=== PATIENT | male | born 1970 | race Caucasian/White ===

== ENCOUNTER 2016-07-18 22:26 | Emergency (ER) | payer OTHER ==
[2016-07-18 22:33] VITALS: BP 128/74; PULSE 95; TEMP 97.9; BMI 32.5
[2016-07-18] MEDS ORDERED: TETRACAINE 0.5% OPHTH SOLN 2 ML BOTTLE ONE (23:10)
[2016-07-18] MEDS ORDERED: FLUORESCEIN NA 1 EA STRIP ONE (23:10)
[2016-07-18] MEDS ORDERED: OFLOXACIN 0.3% OPHTHALMIC SOLUTION 5 ML BOTTLE OD ONE (23:20)
[2016-07-18] MEDS ORDERED: TETANUS AND DIPHTHERIA TOXOID 0.5 ML DISP.SYRIN IM ONE (23:20)
--- NOTE | 2016-07-18 23:28 | PDOC ---
History of Present Illness - General Chief Complaint: Foreign Body (FB) Stated Complaint: FOREIGN OBJECT STUCK IN EYE Time Seen by Provider: 07/18/16 22:37 History Source: Patient Exam Limitations: No Limitations - History of Present Illness Initial Comments: 07/18/16 23:22 46yo Male patient presents to ED c/o metal in right eye. Patient states while shaving metal at work, a piece of metal got into his eye. He states this is the 6th time that this has happened. He denies change in vision. He denies any other complaints at this time. Patient reports tetanus not up to date. Timing/Duration: reports: just prior to arrival Severity: reports: mild Past History - Travel Traveled outside of the country in the last 30 days: No Close contact w/someone who was outside of country & ill: No - Past Medical History Allergies/Adverse Reactions: Allergies Allergy/AdvReac Type Severity Reaction Status Date / Time No Known Allergies Allergy Verified 07/18/16 22:47 Home Medications: Ambulatory Orders NK [No Known Home Medication] 07/18/16 - Immunization History Immunization Up to Date: No - Psycho/Social/Smoking Cessation Hx Anxiety: No Suicidal Ideation: No Smoking History: Current every day smoker Have you smoked in the past 12 months: Yes Information on smoking cessation initiated: No Hx Alcohol Use: No Substance Use Type: None Respiratory Specific PMHX - Complaint Specific PMHX Angina: No Bronchitis: No Pneumonia: No Pulmonary Embolus: No TB (Tuberculosis): No Review of Systems - Review of Systems Able to Perform ROS?: Yes Is the patient limited Chinese proficient: No Constitutional: No: Chills, Fever HEENTM: Yes: Eye Pain, Blurred Vision, Tearing. No: Double Vision, Cataracts, Ear Pain, Ear Discharge, Nose Congestion, Throat Pain, Throat Swelling, Mouth Pain, Mouth Swelling Respiratory: No: Cough, Shortness of Breath, Wheezing Cardiac (ROS): No: Chest Pain, Edema, Palpitations ABD/GI: No: Constipated, Diarrhea, Nausea, Poor Appetite, Poor Fluid Intake, Vomiting : No: Burning, Dysuria, Flank Pain, Hematuria Musculoskeletal: No: Back Pain Integumentary: No: Bruising, Erythema, Rash, Sweating Neurological: No: Headache, Seizure, Ataxia, Dizziness All Other Systems: Reviewed and Negative *Physical Exam - Vital Signs Last Vital Signs Temp Pulse Resp BP Pulse Ox 97.9 F 95 H 18 128/74 97 07/18/16 22:32 07/18/16 22:32 07/18/16 22:32 07/18/16 22:32 07/18/16 22:48 - Physical Exam General Appearance: Yes: Nourished, Appropriately Dressed. No: Apparent Distress, Mild Distress, Moderate Distress, Severe Distress HEENT: positive: EOMI, СВЕТЛАНА, Normal ENT Inspection, Normal Voice, Symmetrical, TMs Normal, Pharynx Normal, Other (Foreign body noted imbedded into right eye. Visual acuity 20/20 as reported by nurse.). negative: Pharyngeal Erythema, Tonsillar Exudate, Tonsillar Erythema, Nasal Congestion, Rhinorrhea, Sinus Tenderness, TM Bulging, TM Dull, TM Erythema Neck: positive: Trachea midline, Supple. negative: Decreased range of motion, Stridor, Lymphadenopathy (R), Lymphadenopathy (L) Respiratory/Chest: positive: Lungs Clear, Normal Breath Sounds. negative: Respiratory Distress, Accessory Muscle Use, Labored Respiration, Rapid RR Cardiovascular: positive: Regular Rhythm, Regular Rate Musculoskeletal: positive: Normal Inspection. negative: CVA Tenderness Extremity: positive: Normal Capillary Refill, Normal Inspection, Normal Range of Motion. negative: Pedal Edema, Swelling, Calf Tenderness, Erythema, Inflammation Integumentary: positive: Normal Color, Dry, Warm. negative: Erythema, Rash, Swelling, Bruising Neurologic: positive: litigation secretary II-XII NML intact, Fully Oriented, Alert, Normal Mood/ Affect, Normal Response, Motor Strength 5/5 Procedures - Eye Procedure Alcaine Drops Administered: Yes Eye Irrigated w/ Saline(Mateo Lens): No Antibiotic Oinment/Drps Admin: right eye Progress: 07/18/16 23:27 Rodriguez lamp revealed no corneal abrasion, but foreign body noted. 3 attempts to remove foreign body unsuccessful. Patient will be referred to ophthalmology. *DC/Admit/Observation/Transfer Diagnosis at time of Disposition: Foreign body in eye Qualifiers: Encounter type: initial encounter Laterality: right Qualified Code(s): T15.91XA - Foreign body on external eye, part unspecified, right eye, initial encounter - Discharge Dispostion Disposition: HOME Condition at time of disposition: Stable Admit: No - Referrals Referrals: Juan Pablo Langley MD [Primary Care Provider] - Juan Kramer MD [Staff Physician] - - Patient Instructions Printed Discharge Instructions: DI for Foreign Body in the Eye Additional Instructions: FOLLOW UP WITH OPHTHALMOLOGY DISCUSSED. ADMINISTER MEDICATIONS SUCH: 2 DROPS TO RIGHT EYE EVERY 3-4 HOURS WHILE AWAKE X 2 DAYS, THEN 1 DROP EVERY 3-4 HOURS X 3 DAYS WHILE AWAKE. YOU NEED TO SEE AN RECORD PRESS OPERATOR WITH IN 48 HOURS FOR FURTHER EVALUATION. Print Language: SYRIAN
== END 2016-07-18 23:45 | disposition home or self-care (01) ==
LOC: JER 22:26
PROC: 08C0XZZ Extirpation of Matter from Right Eye, External Approach (ICD-10-PCS; principal; 2016-07-18)
PROC: 4A07X0Z Measurement of Visual Acuity, External Approach (ICD-10-PCS; 2016-07-18)
DX: T15.81XA Foreign body in other and multiple parts of external eye, right eye, initial encounter (principal); Z18.10 Retained metal fragments, unspecified
CPT/HCPCS: 99282-25

== ENCOUNTER 2023-11-14 14:33 | Emergency (ER) | payer OTHER ==
[2023-11-14 15:25] VITALS: BP 138/86; PULSE 84; RESP 18; TEMP 98.4; BMI 31.7
[2023-11-14] MEDS: KETOROLAC TROMETHAMINE 30 MG/1 ML VIAL IM ONE (15:49)
[2023-11-14] MEDS ORDERED: KETOROLAC TROMETHAMINE 30 MG/1 ML VIAL ONE (15:51)
== END 2023-11-14 17:18 | disposition home or self-care (01) ==
LOC: FER 14:33
PROC: 3E0133Z Introduction of Anti-inflammatory into Subcutaneous Tissue, Percutaneous Approach (ICD-10-PCS; principal; 2023-11-14)
DX: M25.552 Pain in left hip (principal)
CPT/HCPCS: 73502-TC-LT-FY; 99284-25